=== PATIENT | female | born 1945 | race Caucasian/White ===

== ENCOUNTER 2021-06-24 11:16 | Outpatient (CLI) | payer MEDICARE, BC | END 2021-06-24 11:17 | disposition home or self-care (01) | LOC: CSHMAMMO 11:16 | PROVIDERS: ATTEND Family Medicine | DX: Z12.31 Encounter for screening mammogram for malignant neoplasm of breast (principal); Z91.89 Other specified personal risk factors, not elsewhere classified | CPT/HCPCS: 77063; 77067 ==

== ENCOUNTER 2022-11-09 14:43 | Outpatient (CLI) | payer MEDICARE, BC | END 2022-11-09 14:44 | disposition home or self-care (01) | LOC: CSHMAMMO 14:43 | PROVIDERS: ATTEND Family Medicine | DX: Z12.31 Encounter for screening mammogram for malignant neoplasm of breast (principal); Z91.89 Other specified personal risk factors, not elsewhere classified | CPT/HCPCS: 77063; 77067 ==

== ENCOUNTER 2025-04-14 12:47 | Outpatient (CLI) | payer MEDICARE, BC | END 2025-04-14 12:48 | disposition home or self-care (01) | LOC: CSHCT 12:47 | PROVIDERS: ATTEND Orthopaedic Surgery | DX: M54.16 Radiculopathy, lumbar region (principal); M48.061 Spinal stenosis, lumbar region without neurogenic claudication | CPT/HCPCS: 72131 ==

== ENCOUNTER 2025-04-22 12:46 | Outpatient (CLI) | payer MEDICARE, BC | END 2025-04-22 12:47 | disposition home or self-care (01) | LOC: CSHLAB 12:46 | PROVIDERS: ATTEND Orthopaedic Surgery | DX: Z01.812 Encounter for preprocedural laboratory examination (principal); M54.50 Low back pain, unspecified | CPT/HCPCS: 80048; 85027; 85610; 85730; 86850; 86900; 86901 ==